=== PATIENT | female | born 1980 | race Caucasian/White ===

== ENCOUNTER 2017-05-22 14:08 | Emergency (ER) | payer SELFPAY ==
[~2017-05-22] VITALS: Ht 157.5 cm; Wt 68.4 kg
[~2017-05-22 14:08] MED LIST: AZIT250T PO
[2017-05-22 14:31] LABS: BASOPHILS # (AUTO) 0.1 X10'3 (0-0.2); BASOPHILS % (AUTO) 1.9 % (0-1); EOSINOPHILS # (AUTO) 0.1 X10'3 (0-0.9); EOSINOPHILS % (AUTO) 1.5 % (0-6); HEMATOCRIT 40.4 % (35.0-45.0); HEMOGLOBIN 14.1 g/dl (12.0-16.0); LYMPHOCYTES # (AUTO) 1.6 X10'3 (1.1-4.8); LYMPHOCYTES % (AUTO) 28.1 % (21-51); MEAN CORPUSCULAR HEMOGLOBIN 37.8 PG (27.0-31.0); MEAN CORPUSCULAR HGB CONC 34.9 % (33.0-36.5); MEAN CORPUSCULAR VOLUME 108.3 FL (78-98); MONOCYTES # (AUTO) 0.9 X10'3 (0-0.9); MONOCYTES % (AUTO) 16.8 % (2-12); NEUTROPHILS # (AUTO) 2.9 X10'3 (1.8-7.7); NEUTROPHILS % (AUTO) 51.7 % (42-75); PLATELET COUNT 307 X10'3 (140-440); RED BLOOD COUNT 3.73 X10'6 (4.20-5.60); RED CELL DISTRIBUTION WIDTH 13.1 % (11.5-14.5); WHITE BLOOD COUNT 5.6 X10'3 (4.5-11.0)
[2017-05-22] MEDS ORDERED: ketorolac trometh. 30mg/ml inj. IM ONE (14:35)
[2017-05-22 14:38] LABS: PROTHROMBIN TIME 9.9 SECONDS (9.0-12.0)
[2017-05-22 14:43] LABS: CLARITY,URINE CLEAR (Clear); COLOR,URINE YELLOW (Yellow); GLUCOSE, URINE NEGATIVE (Neg); KETONES,URINE NEGATIVE (Neg); LEUKOCYTE ESTERASE ,URINE NEGATIVE (Neg); NITRITES, URINE NEGATIVE (Neg); OCCULT BLOOD,URINE LARGE (Neg); PROTEIN,URINE 100 mg/dl (Neg)
[2017-05-22 14:49] LABS: UA COLLECTION TYPE CLN CATCH MIDSTREAM
[2017-05-22 14:50] LABS: BACTERIA,URINE FEW /HPF (Neg); MUCUS STRANDS FEW /LPF (Neg); RBC,URINE 0-2 /HPF (0-2); SQUAMOUS EPITHELIAL CELL,UR MANY /LPF (FEW); WBC,URINE 0-4 /HPF (0-4)
[2017-05-22 14:51] LABS: ALANINE AMINOTRANSFERASE 301 U/L (12-78); ALBUMIN 4.3 G/DL (3.4-5.0); ALBUMIN/GLOBULIN RATIO 1.1 (1.1-1.5); ALKALINE PHOSPHATASE 119 IU/L (46-116); ANION GAP 9 (8-16); ASPARTATE AMINO TRANSFERASE 330 U/L (10-37); BILIRUBIN,TOTAL 0.8 MG/DL (0.1-1.0); BLOOD UREA NITROGEN 6 MG/DL (7-18); BUN/CREATININE RATIO 8.6 (6.6-38.0); CALCIUM 9.3 MG/DL (8.5-10.1); CHLORIDE 104 MMOL/L (99-107); GLUCOSE 95 MG/DL (70-104); POTASSIUM 3.4 MMOL/L (3.5-5.1); SODIUM 141 MMOL/L (135-145); TOTAL CARBON DIOXIDE 27.9 MMOL/L (24-32); TOTAL PROTEIN 8.1 G/DL (6.4-8.2); eGFR > 90 ML/MIN
[2017-05-22 15:26] LABS: URINE HCG NEGATIVE (NEG)
[2017-05-22 16:46] VITALS: BP 155/95
== END 2017-05-22 16:47 | disposition home or self-care (01) ==
LOC: ER 14:09
DX: N83.202 Unspecified ovarian cyst, left side (principal); N93.8 Other specified abnormal uterine and vaginal bleeding; K21.9 Gastro-esophageal reflux disease without esophagitis; E03.9 Hypothyroidism, unspecified; Z98.51 Tubal ligation status; Z88.5 Allergy status to narcotic agent; Z79.899 Other long term (current) drug therapy
CPT/HCPCS: 36415; 76856; 80053; 81001; 81025; 85025; 85610; 96372; 99285; J1885

== ENCOUNTER 2017-08-13 18:44 | Emergency (ER) | payer OTHER ==
[~2017-08-13] VITALS: Ht 157.5 cm; Wt 62.0 kg
[2017-08-13 19:41] LABS: D-DIMER 0.81 MG/L FEU (0-0.50)
[2017-08-13 20:34] VITALS: BP 140/95
== END 2017-08-13 20:35 | disposition home or self-care (01) ==
LOC: ER 18:45
DX: M79.651 Pain in right thigh (principal); I10 Essential (primary) hypertension; K21.9 Gastro-esophageal reflux disease without esophagitis; E03.9 Hypothyroidism, unspecified; F17.200 Nicotine dependence, unspecified, uncomplicated; Z88.5 Allergy status to narcotic agent
CPT/HCPCS: 36415; 85379; 93971; 99285

== ENCOUNTER 2017-12-22 23:44 | Emergency (ER) | payer SELFPAY ==
[~2017-12-22] VITALS: Ht 157.5 cm; Wt 62.0 kg
[2017-12-22 23:48] VITALS: BP 135/91
[2017-12-24] MEDS ORDERED: AZIT500T PO (16:33)
== END 2017-12-23 06:18 | disposition left against medical advice (07) ==
LOC: ER 23:45
DX: R06.00 Dyspnea, unspecified (principal); R05 Cough; R06.02 Shortness of breath; Z53.21 Procedure and treatment not carried out due to patient leaving prior to being seen by health care provider

== ENCOUNTER 2017-12-28 18:51 | Emergency (ER) | payer OTHER ==
[~2017-12-28] VITALS: Ht 162.6 cm; Wt 60.1 kg
[~2017-12-28 18:51] MED LIST changes: +AZIT500T PO
[2017-12-28 18:56] VITALS: BP 142/104
[2017-12-28 20:14] LABS: BASOPHILS # (AUTO) 0.1 X10'3 (0-0.2); HEMOGLOBIN 14.7 g/dl (12.0-16.0); LYMPHOCYTES # (AUTO) 1.8 X10'3 (1.1-4.8); MONOCYTES # (AUTO) 0.6 X10'3 (0-0.9); NEUTROPHILS # (AUTO) 2.3 X10'3 (1.8-7.7); WHITE BLOOD COUNT 4.8 X10'3 (4.5-11.0)
[2017-12-28 20:17] LABS: BASOPHILS % (AUTO) 1.3 % (0-1); EOSINOPHILS # (AUTO) 0.1 X10'3 (0-0.9); EOSINOPHILS % (AUTO) 1.1 % (0-6); HEMATOCRIT 42.4 % (35.0-45.0); LYMPHOCYTES % (AUTO) 37.3 % (21-51); MEAN CORPUSCULAR HGB CONC 34.7 % (33.0-36.5); MEAN CORPUSCULAR VOLUME 112.4 FL (78-98); MEAN PLATELET VOLUME 8.1 FL (7.4-10.4); MONOCYTES % (AUTO) 12.7 % (2-12); NEUTROPHILS % (AUTO) 47.6 % (42-75); PLATELET COUNT 237 X10'3 (140-440); RED BLOOD COUNT 3.77 X10'6 (4.20-5.60)
[2017-12-28 20:23] LABS: ALANINE AMINOTRANSFERASE 129 U/L (12-78); ALKALINE PHOSPHATASE 144 IU/L (46-116); ANION GAP 16 (8-16); ASPARTATE AMINO TRANSFERASE 320 U/L (10-37); BILIRUBIN,TOTAL 0.9 MG/DL (0.1-1.0); BLOOD UREA NITROGEN 5 MG/DL (7-18); BUN/CREATININE RATIO 7.5 (6.6-38.0); CALCIUM 9.3 MG/DL (8.5-10.1); CHLORIDE 97 MMOL/L (99-107); CREATININE 0.67 MG/DL (0.40-0.90); GLUCOSE 128 MG/DL (70-104); POTASSIUM 4.1 MMOL/L (3.5-5.1); SODIUM 136 MMOL/L (135-145); TOTAL CARBON DIOXIDE 22.7 MMOL/L (24-32); TOTAL PROTEIN 8.2 G/DL (6.4-8.2); eGFR > 90 ML/MIN
[2017-12-28 20:52] LABS: PLATELET ESTIMATE NORMAL
== END 2017-12-28 21:04 | disposition home or self-care (01) ==
LOC: ER 18:52
DX: R53.1 Weakness (principal); R11.10 Vomiting, unspecified; H92.02 Otalgia, left ear; I10 Essential (primary) hypertension; K21.9 Gastro-esophageal reflux disease without esophagitis; E03.9 Hypothyroidism, unspecified; F12.90 Cannabis use, unspecified, uncomplicated; F17.200 Nicotine dependence, unspecified, uncomplicated; Z88.5 Allergy status to narcotic agent; Z79.2 Long term (current) use of antibiotics
CPT/HCPCS: 36415; 80053; 85025; 99284

== ENCOUNTER 2018-02-26 16:59 | Emergency (ER) | payer OTHER ==
[~2018-02-26] VITALS: Ht 157.5 cm; Wt 54.0 kg
[~2018-02-26 16:59] MED LIST changes: -AZIT500T PO
[2018-02-26 17:13] VITALS: BP 140/93
[2018-02-27] MEDS ORDERED: PRED20TA PO (12:20)
[2018-02-27] MEDS ORDERED: DOXY100C43 PO (12:20)
[2018-02-27] MEDS ORDERED: ALBU8HFA PO (12:20)
== END 2018-02-26 18:22 | disposition left against medical advice (07) ==
LOC: ER 16:59
DX: M79.10 Myalgia, unspecified site (principal); Z53.21 Procedure and treatment not carried out due to patient leaving prior to being seen by health care provider

== ENCOUNTER 2018-02-27 10:21 | Emergency (ER) | payer OTHER ==
[~2018-02-27] VITALS: Ht 157.5 cm; Wt 54.5 kg
[2018-02-27 11:25] VITALS: BP 138/91
[2018-02-27] MEDS ORDERED: ALBU8HFA PO (12:20)
[2018-02-27] MEDS ORDERED: DOXY100C43 PO (12:20)
[2018-02-27] MEDS ORDERED: PRED20TA PO (12:20)
== END 2018-02-27 12:34 | disposition home or self-care (01) ==
LOC: ER 10:21
DX: J20.9 Acute bronchitis, unspecified (principal); J32.9 Chronic sinusitis, unspecified; F12.90 Cannabis use, unspecified, uncomplicated; B34.9 Viral infection, unspecified; I10 Essential (primary) hypertension; K21.9 Gastro-esophageal reflux disease without esophagitis; Z98.51 Tubal ligation status; Z72.0 Tobacco use; Z98.890 Other specified postprocedural states; Z88.5 Allergy status to narcotic agent; Z79.2 Long term (current) use of antibiotics; Z79.899 Other long term (current) drug therapy
CPT/HCPCS: 99283

== ENCOUNTER 2018-03-09 02:19 | Emergency (ER) | payer SELFPAY ==
[~2018-03-09] VITALS: Ht 157.5 cm; Wt 52.0 kg
[~2018-03-09 02:19] MED LIST changes: +ALBU8HFA PO; +DOXY100C43 PO; +PRED20TA PO
[2018-03-09] MEDS ORDERED: ONDA4TAB9 PO (05:37)
[2018-03-09] MEDS ORDERED: ALBU8HFA PO (05:37)
[2018-03-09] MEDS ORDERED: DOXY100C43 PO (05:37)
[2018-03-09] MEDS ORDERED: PRED20TA PO (05:37)
[2018-03-09 05:52] VITALS: BP 130/82
== END 2018-03-09 05:54 | disposition home or self-care (01) ==
LOC: ER 02:19
DX: J20.9 Acute bronchitis, unspecified (principal); K29.00 Acute gastritis without bleeding; I10 Essential (primary) hypertension; K21.9 Gastro-esophageal reflux disease without esophagitis; E03.9 Hypothyroidism, unspecified; F12.90 Cannabis use, unspecified, uncomplicated; F17.200 Nicotine dependence, unspecified, uncomplicated; Z79.899 Other long term (current) drug therapy; Z98.890 Other specified postprocedural states; Z98.51 Tubal ligation status; Z88.6 Allergy status to analgesic agent; Z72.0 Tobacco use
CPT/HCPCS: 71045; 99283; 99406

== ENCOUNTER 2019-02-18 00:10 | Emergency (ER) | payer SELFPAY ==
[~2019-02-18] VITALS: Ht 158.8 cm; Wt 65.0 kg
[~2019-02-18 00:10] MED LIST changes: -ALBU8HFA PO; -DOXY100C43 PO; -PRED20TA PO
--- NOTE | 2019-02-18 01:00 | NUR ---
note that patient smells of etoh and states that she "did a shot " for pain beffore coming to the er
[2019-02-18 01:03] VITALS: BP 127/85
--- NOTE | 2019-02-18 01:14 | NUR ---
went to check on patient and patient and her boyfriend left without being seen by
--- NOTE | 2019-02-18 01:15 | NUR ---
ASKED DR SANDERS TO LOOK AT LEFT SHOULDER XRAY BECAUSE PATIENT LEFT WITHOUT BEING SEEN. DR SANDERS STATED THAT HE WILL LOOK AT THE SHOULDER XRAY LATER
== END 2019-02-18 00:15 | disposition left against medical advice (07) ==
LOC: ER 00:11
DX: M25.512 Pain in left shoulder (principal); Z53.21 Procedure and treatment not carried out due to patient leaving prior to being seen by health care provider
CPT/HCPCS: 73030

== ENCOUNTER 2021-08-30 13:51 | Emergency (ER) | payer MEDICAID ==
[~2021-08-30] VITALS: Ht 157.5 cm; Wt 61.8 kg
[2021-08-30 14:02] VITALS: BP 141/89
[2021-08-30] MEDS ORDERED: ALBU8.5H17 INH ×3 (15:43→16:24)
[2021-08-30] MEDS ORDERED: GUAI120015 PO ×3 (15:44→16:24)
== END 2021-08-30 18:17 | disposition home or self-care (01) ==
LOC: ER 13:51
DX: J20.9 Acute bronchitis, unspecified (principal); Z20.822 Contact with and (suspected) exposure to COVID-19; R43.8 Other disturbances of smell and taste; R06.02 Shortness of breath; I10 Essential (primary) hypertension; K21.9 Gastro-esophageal reflux disease without esophagitis; E03.9 Hypothyroidism, unspecified; F41.9 Anxiety disorder, unspecified; F32.A Depression, unspecified; F12.90 Cannabis use, unspecified, uncomplicated; Z98.51 Tubal ligation status; Z98.890 Other specified postprocedural states; Z72.89 Other problems related to lifestyle; Z88.5 Allergy status to narcotic agent; Z79.2 Long term (current) use of antibiotics; Z79.899 Other long term (current) drug therapy
CPT/HCPCS: 87502; 87503; 87635; 99283; C9803

== ENCOUNTER 2022-11-09 16:55 | Emergency (ER) | payer MEDICAID ==
[~2022-11-09] VITALS: Ht 158.8 cm; Wt 54.4 kg
[~2022-11-09 16:55] MED LIST changes: +ALBU8.5H17 INH; +GUAI120015 PO
[2022-11-09 17:36] VITALS: BP 125/95; PULSE 109; RESP 18; TEMP 98.6; O2SAT 98
[2022-11-09] MEDS ORDERED: IBUP-1985 PO (18:44)
[2022-11-09] MEDS ORDERED: BENZ1LOZ74 PO (18:44)
[2022-11-09] MEDS ORDERED: ONDA4TAB12 PO (18:44)
== END 2022-11-09 18:56 | disposition home or self-care (01) ==
LOC: ER 16:57
DX: J06.9 Acute upper respiratory infection, unspecified (principal); F10.10 Alcohol abuse, uncomplicated; I10 Essential (primary) hypertension; K21.9 Gastro-esophageal reflux disease without esophagitis; E03.9 Hypothyroidism, unspecified; F12.90 Cannabis use, unspecified, uncomplicated; Z88.5 Allergy status to narcotic agent; Z79.2 Long term (current) use of antibiotics; Z79.899 Other long term (current) drug therapy; Z98.51 Tubal ligation status; Z98.890 Other specified postprocedural states; Y90.9 Presence of alcohol in blood, level not specified
CPT/HCPCS: 99283

== ENCOUNTER 2023-07-19 18:24 | Emergency (ER) | payer MEDICAID ==
[~2023-07-19] VITALS: Ht 157.5 cm; Wt 54.5 kg
[~2023-07-19 18:24] MED LIST changes: +BENZ1LOZ74 PO; +IBUP-1985 PO; +ONDA4TAB12 PO
[2023-07-19 18:51] VITALS: TEMP 98.7
[2023-07-19] MEDS: normal saline 1000ml 1,000 ML IV ONE (20:19)
[2023-07-19 20:28] LABS: BASOPHILS # (AUTO) 0.1 X10'3 (0-0.2); BASOPHILS % (AUTO) 1.2 % (0-1); EOSINOPHILS # (AUTO) 0.2 X10'3 (0-0.9); EOSINOPHILS % (AUTO) 1.8 % (0-6); HEMATOCRIT 38.6 % (35.0-45.0); HEMOGLOBIN 13.3 g/dl (12.0-16.0); LYMPHOCYTES # (AUTO) 2.7 X10'3 (1.1-4.8); LYMPHOCYTES % (AUTO) 30.3 % (21-51); MEAN CORPUSCULAR HGB CONC 34.5 g/dL (33.0-36.5); MEAN CORPUSCULAR VOLUME 101.4 FL (78-98); MEAN PLATELET VOLUME 6.2 FL (7.4-10.4); MONOCYTES # (AUTO) 1.1 X10'3 (0-0.9); MONOCYTES % (AUTO) 12.8 % (2-12); NEUTROPHILS # (AUTO) 4.8 X10'3 (1.8-7.7); NEUTROPHILS % (AUTO) 53.9 % (42-75); PLATELET COUNT 467 X10'3 (140-440); RED BLOOD COUNT 3.81 X10'6 (4.20-5.60); RED CELL DISTRIBUTION WIDTH 12.8 % (11.5-14.5); WHITE BLOOD COUNT 8.9 X10'3 (4.5-11.0)
[2023-07-19] MEDS: LORazepam 2 mg/ml vial IV ONE (20:32)
[2023-07-19 20:35] LABS: ALBUMIN 2.9 G/DL (3.4-5.0); ANION GAP 15 (8-16); BLOOD UREA NITROGEN 8 MG/DL (7-18); BUN/CREATININE RATIO 9.8 (10.0-20.0); CALCIUM 8.2 MG/DL (8.5-10.1); CHLORIDE 99 MMOL/L (99-107); CREATININE 0.82 MG/DL (0.40-0.90); GLUCOSE 92 MG/DL (70-104); POTASSIUM 3.2 MMOL/L (3.5-5.1); SODIUM 140 MMOL/L (135-145); TOTAL CARBON DIOXIDE 26.4 MMOL/L (24-32); eCRCL 69 ML/MIN; eGFR 75 ML/MIN
[2023-07-19] MEDS ORDERED: ONDA4TAB12 PO (21:01)
[2023-07-19] MEDS: potassium Cl 20 mEq SR tablet PO ONE (21:18)
[2023-07-19 21:25] VITALS: BP 135/89; PULSE 91; RESP 16; O2SAT 95
== END 2023-07-19 21:27 | disposition home or self-care (01) ==
LOC: ER 18:24
DX: B34.9 Viral infection, unspecified (principal); Z20.822 Contact with and (suspected) exposure to COVID-19; E87.6 Hypokalemia; E86.0 Dehydration; I10 Essential (primary) hypertension; K21.9 Gastro-esophageal reflux disease without esophagitis; E03.9 Hypothyroidism, unspecified; F12.90 Cannabis use, unspecified, uncomplicated; Z88.5 Allergy status to narcotic agent; Z79.2 Long term (current) use of antibiotics; Z79.899 Other long term (current) drug therapy; Z98.890 Other specified postprocedural states
CPT/HCPCS: 36415; 71045; 80048; 85025; 87502; 87503; 87811; 96361; 96374; 99284; J2060; J7030

== ENCOUNTER 2023-10-30 14:40 | Emergency (ER) | payer MEDICAID ==
[~2023-10-30] VITALS: Ht 157.5 cm; Wt 56.4 kg
[~2023-10-30 14:40] MED LIST changes: +ONDA-243 PO; -ONDA4TAB12 PO
[2023-10-30] MEDS: normal saline 1000ML IV soln IVB ONE (16:25)
[2023-10-30 19:22] VITALS: BP 123/77; PULSE 88; RESP 14; TEMP 98.5; O2SAT 100
== END 2023-10-30 19:23 | disposition home or self-care (01) ==
LOC: ER 14:40
DX: R06.02 Shortness of breath (principal); E86.0 Dehydration; F15.10 Other stimulant abuse, uncomplicated; I10 Essential (primary) hypertension; K21.9 Gastro-esophageal reflux disease without esophagitis; E03.9 Hypothyroidism, unspecified; F17.200 Nicotine dependence, unspecified, uncomplicated; F12.90 Cannabis use, unspecified, uncomplicated; Z88.5 Allergy status to narcotic agent; Z79.1 Long term (current) use of non-steroidal anti-inflammatories (NSAID); Z79.2 Long term (current) use of antibiotics; Z79.899 Other long term (current) drug therapy; Z98.890 Other specified postprocedural states; Z98.51 Tubal ligation status
CPT/HCPCS: 93005; 96360; 99285; J7030

== ENCOUNTER 2023-11-13 03:22 | Emergency (ER) | payer MEDICAID ==
[~2023-11-13] VITALS: Ht 157.5 cm; Wt 54.5 kg
[2023-11-13] MEDS ORDERED: HYDR-3965 PO (03:42)
[2023-11-13] MEDS ORDERED: CLIN-197 PO (03:42)
[2023-11-13] MEDS: HYDROcodone/acetaminophen 5mg/325mg tablet PO ONE (03:47)
[2023-11-13] MEDS: clindamycin 150mg capsule PO ONE (03:47)
[2023-11-13 03:59] VITALS: BP 145/68; PULSE 88; RESP 16; TEMP 97.8; O2SAT 98
== END 2023-11-13 04:01 | disposition home or self-care (01) ==
LOC: ER 03:22
DX: K04.7 Periapical abscess without sinus (principal); I10 Essential (primary) hypertension; K21.9 Gastro-esophageal reflux disease without esophagitis; E03.9 Hypothyroidism, unspecified; F41.9 Anxiety disorder, unspecified; F32.A Depression, unspecified; F12.90 Cannabis use, unspecified, uncomplicated; F15.90 Other stimulant use, unspecified, uncomplicated; Z88.5 Allergy status to narcotic agent; Z79.2 Long term (current) use of antibiotics; Z79.899 Other long term (current) drug therapy; Z79.1 Long term (current) use of non-steroidal anti-inflammatories (NSAID); Z98.890 Other specified postprocedural states; Z98.51 Tubal ligation status
CPT/HCPCS: 99283

== ENCOUNTER 2023-11-23 11:14 | Emergency (ER) | payer MEDICAID ==
[~2023-11-23] VITALS: Ht 157.5 cm; Wt 54.5 kg
[~2023-11-23 11:14] MED LIST changes: +CLIN-197 PO; +HYDR-3965 PO
[2023-11-23 12:50] VITALS: BP 132/86; PULSE 88; RESP 18; TEMP 97.8; O2SAT 99
[2023-11-23 13:34] LABS: BASOPHILS # (AUTO) 0.1 X10'3 (0-0.2); BASOPHILS % (AUTO) 1.1 % (0-1); EOSINOPHILS # (AUTO) 0.1 X10'3 (0-0.9); EOSINOPHILS % (AUTO) 2.1 % (0-6); HEMATOCRIT 38.6 % (35.0-45.0); HEMOGLOBIN 13.3 g/dl (12.0-16.0); LYMPHOCYTES # (AUTO) 2.2 X10'3 (1.1-4.8); LYMPHOCYTES % (AUTO) 44.9 % (21-51); MEAN CORPUSCULAR HEMOGLOBIN 37.4 PG (27.0-31.0); MEAN CORPUSCULAR HGB CONC 34.6 g/dL (33.0-36.5); MEAN CORPUSCULAR VOLUME 108.1 FL (78-98); MEAN PLATELET VOLUME 6.7 FL (7.4-10.4); MONOCYTES # (AUTO) 0.6 X10'3 (0-0.9); MONOCYTES % (AUTO) 13.1 % (2-12); NEUTROPHILS # (AUTO) 1.9 X10'3 (1.8-7.7); NEUTROPHILS % (AUTO) 38.8 % (42-75); PLATELET COUNT 318 X10'3 (140-440); RED BLOOD COUNT 3.57 X10'6 (4.20-5.60); RED CELL DISTRIBUTION WIDTH 13.6 % (11.5-14.5); WHITE BLOOD COUNT 4.9 X10'3 (4.5-11.0)
[2023-11-23 13:47] LABS: ALBUMIN 3.4 G/DL (3.4-5.0); ANION GAP 10 (8-16); BLOOD UREA NITROGEN 4 MG/DL (7-18); BUN/CREATININE RATIO 6.8 (10.0-20.0); CALCIUM 8.9 MG/DL (8.5-10.1); CHLORIDE 101 MMOL/L (99-107); CREATININE 0.59 MG/DL (0.40-0.90); GLUCOSE 95 MG/DL (70-104); SODIUM 138 MMOL/L (135-145); TOTAL CARBON DIOXIDE 27.3 MMOL/L (24-32); eCRCL 95 ML/MIN; eGFR > 90 ML/MIN
[2023-11-23] MEDS: potassium bicarbonate/cit acid 25mEq tablet.effervescent PO STA (14:24)
[2023-11-23] MEDS ORDERED: POTA20PA40 PO (15:36)
== END 2023-11-23 16:02 | disposition home or self-care (01) ==
LOC: ER 11:14
DX: E87.6 Hypokalemia (principal); Z20.822 Contact with and (suspected) exposure to COVID-19; R53.1 Weakness; I10 Essential (primary) hypertension; K21.9 Gastro-esophageal reflux disease without esophagitis; E03.9 Hypothyroidism, unspecified; F41.9 Anxiety disorder, unspecified; F32.A Depression, unspecified; F12.90 Cannabis use, unspecified, uncomplicated; F15.90 Other stimulant use, unspecified, uncomplicated; Z88.5 Allergy status to narcotic agent; Z79.2 Long term (current) use of antibiotics; Z79.1 Long term (current) use of non-steroidal anti-inflammatories (NSAID); Z79.899 Other long term (current) drug therapy; Z98.890 Other specified postprocedural states; Z98.51 Tubal ligation status
CPT/HCPCS: 36415; 71045; 80048; 85025; 87811; 99284

== ENCOUNTER 2023-12-02 15:57 | Emergency (ER) | payer MEDICAID ==
[~2023-12-02] VITALS: Ht 157.5 cm; Wt 60.0 kg
[~2023-12-02 15:57] MED LIST changes: -CLIN-197 PO; +POTA20PA40 PO
[2023-12-02 17:36] LABS: BASOPHILS # (AUTO) 0.1 X10'3 (0-0.2); BASOPHILS % (AUTO) 1.5 % (0-1); EOSINOPHILS # (AUTO) 0.1 X10'3 (0-0.9); EOSINOPHILS % (AUTO) 2.4 % (0-6); HEMATOCRIT 38.1 % (35.0-45.0); HEMOGLOBIN 12.9 g/dl (12.0-16.0); LYMPHOCYTES % (AUTO) 39.6 % (21-51); MEAN CORPUSCULAR HEMOGLOBIN 36.9 PG (27.0-31.0); MEAN CORPUSCULAR HGB CONC 33.9 g/dL (33.0-36.5); MEAN CORPUSCULAR VOLUME 108.9 FL (78-98); MEAN PLATELET VOLUME 6.6 FL (7.4-10.4); MONOCYTES # (AUTO) 0.7 X10'3 (0-0.9); MONOCYTES % (AUTO) 14.4 % (2-12); NEUTROPHILS # (AUTO) 2.2 X10'3 (1.8-7.7); NEUTROPHILS % (AUTO) 42.1 % (42-75); PLATELET COUNT 312 X10'3 (140-440); RED CELL DISTRIBUTION WIDTH 13.6 % (11.5-14.5); WHITE BLOOD COUNT 5.1 X10'3 (4.5-11.0)
[2023-12-02] MEDS: ondansetron/PF 4mg/2ml inj IV ONE (17:47)
[2023-12-02] MEDS: normal saline 1000ml 1,000 ML IV ONE (17:48)
[2023-12-02] MEDS: LORazepam 2 mg/ml vial IV ONE ×2 (17:56→18:05)
[2023-12-02 18:01] LABS: ALANINE AMINOTRANSFERASE 69 U/L (12-78); ALBUMIN 3.9 G/DL (3.4-5.0); ALBUMIN/GLOBULIN RATIO 0.8 (1.1-1.5); ALKALINE PHOSPHATASE 123 IU/L (46-116); ANION GAP 12 (8-16); ASPARTATE AMINO TRANSFERASE 113 U/L (10-37); BILIRUBIN,TOTAL 0.8 MG/DL (0.1-1.0); BLOOD UREA NITROGEN 11 MG/DL (7-18); BUN/CREATININE RATIO 13.9 (10.0-20.0); CALCIUM 9.2 MG/DL (8.5-10.1); CHLORIDE 101 MMOL/L (99-107); CREATININE 0.79 MG/DL (0.40-0.90); ETHANOL 110 MG/DL (<10); GLUCOSE 92 MG/DL (70-104); MAGNESIUM 1.6 MG/DL (1.5-2.4); POTASSIUM 3.6 MMOL/L (3.5-5.1); SALICYLATE 6.4 MG/DL (4.0-20.0); SODIUM 138 MMOL/L (135-145); TOTAL CARBON DIOXIDE 25.1 MMOL/L (24-32); TOTAL PROTEIN 8.6 G/DL (6.4-8.2); eCRCL 71 ML/MIN; eGFR 79 ML/MIN
[2023-12-02 18:03] LABS: BETA HCG,QUANTITATIVE < 1.0 mIU/ml
[2023-12-02 18:04] LABS: ACETAMINOPHEN < 2.0 UG/ML (10-30)
[2023-12-02] MEDS: thiamine 100mg/ml 2ml inj. IV ONE (20:17)
[2023-12-02 21:27] VITALS: PULSE 88
[2023-12-02] MEDS ORDERED: CHLO25CA10 PO (22:57)
[2023-12-02 23:24] VITALS: BP 159/69; RESP 16; TEMP 97.8; O2SAT 100
== END 2023-12-02 23:38 | disposition home or self-care (01) ==
LOC: ER 15:57 → EEVIPCON 15:57 → ER 23:38
DX: F10.129 Alcohol abuse with intoxication, unspecified (principal); F15.10 Other stimulant abuse, uncomplicated; I10 Essential (primary) hypertension; K21.9 Gastro-esophageal reflux disease without esophagitis; E03.9 Hypothyroidism, unspecified; F41.9 Anxiety disorder, unspecified; F32.A Depression, unspecified; F12.90 Cannabis use, unspecified, uncomplicated; Z88.5 Allergy status to narcotic agent; Z79.2 Long term (current) use of antibiotics; Z79.1 Long term (current) use of non-steroidal anti-inflammatories (NSAID); Z79.899 Other long term (current) drug therapy; Z98.890 Other specified postprocedural states; Z98.51 Tubal ligation status; Y90.9 Presence of alcohol in blood, level not specified
CPT/HCPCS: 36415; 80053; 80320; 80329; 83735; 84702; 85025; 96361; 96374; 96375; 99285; J2060; J2405; J3411; J7030

== ENCOUNTER 2024-07-03 21:07 | Emergency (ER) | payer MEDICAID ==
[~2024-07-03] VITALS: Ht 160 cm; Wt 59.1 kg
[~2024-07-03 21:07] MED LIST changes: +CHLO25CA10 PO; -HYDR-3965 PO
[2024-07-03 21:10] VITALS: TEMP 98.2
[2024-07-03 21:45] LABS: BASOPHILS % (AUTO) 0.9 % (0-1); EOSINOPHILS % (AUTO) 0.4 % (0-6); HEMATOCRIT 40.6 % (35.0-45.0); HEMOGLOBIN 13.8 g/dl (12.0-16.0); LYMPHOCYTES # (AUTO) 0.9 X10'3 (1.1-4.8); LYMPHOCYTES % (AUTO) 17.5 % (21-51); MEAN CORPUSCULAR HEMOGLOBIN 36.7 PG (27.0-31.0); MEAN CORPUSCULAR HGB CONC 34.1 g/dL (33.0-36.5); MEAN CORPUSCULAR VOLUME 107.7 FL (78-98); MONOCYTES # (AUTO) 0.6 X10'3 (0-0.9); NEUTROPHILS # (AUTO) 3.3 X10'3 (1.8-7.7); NEUTROPHILS % (AUTO) 68.2 % (42-75); PLATELET COUNT 287 X10'3 (140-440); RED BLOOD COUNT 3.77 X10'6 (4.20-5.60); WHITE BLOOD COUNT 4.9 X10'3 (4.5-11.0)
[2024-07-03 21:48] LABS: URINE HCG NEGATIVE (NEG)
[2024-07-03 21:59] LABS: ALANINE AMINOTRANSFERASE 167 U/L (12-78); ALBUMIN 3.7 G/DL (3.4-5.0); ALBUMIN/GLOBULIN RATIO 0.8 (1.1-1.5); ALKALINE PHOSPHATASE 169 IU/L (46-116); ANION GAP 13 (8-16); ASPARTATE AMINO TRANSFERASE 352 U/L (10-37); BILIRUBIN,TOTAL 0.8 MG/DL (0.1-1.0); BLOOD UREA NITROGEN 10 MG/DL (7-18); BUN/CREATININE RATIO 9.7 (10.0-20.0); CALCIUM 8.9 MG/DL (8.5-10.1); CHLORIDE 99 MMOL/L (99-107); CREATININE 1.03 MG/DL (0.40-0.90); GLUCOSE 112 MG/DL (70-104); POTASSIUM 3.2 MMOL/L (3.5-5.1); SODIUM 140 MMOL/L (135-145); TOTAL CARBON DIOXIDE 28.1 MMOL/L (24-32); TOTAL PROTEIN 8.5 G/DL (6.4-8.2); eCRCL 56 ML/MIN; eGFR 58 ML/MIN
[2024-07-03 22:00] LABS: LIPASE 90 U/L (16-77)
[2024-07-03 22:06] LABS: ETHANOL 342 MG/DL (<10); URINE AMPHETAMINE SCREEN POSITIVE (Neg); URINE BARBITUATE SCREEN NEGATIVE (Neg); URINE BENZODIAZEPINES SCREEN NEGATIVE (Neg); URINE CANNABINOID SCREEN NEGATIVE (Neg); URINE COCAINE SCREEN NEGATIVE (Neg); URINE METHADONE SCREEN NEGATIVE (Neg); URINE OPIATE SCREEN NEGATIVE (Neg); URINE PHENCYCLIDINE SCREEN NEGATIVE (Neg)
[2024-07-03 22:22] LABS: BILIRUBIN,URINE SMALL (Neg); CLARITY,URINE TURBID (Clear); COLOR,URINE RED (Yellow); GLUCOSE, URINE NEGATIVE (Neg); KETONES,URINE TRACE mg/dl (Neg); LEUKOCYTE ESTERASE ,URINE NEGATIVE (Neg); OCCULT BLOOD,URINE LARGE (Neg); PROTEIN,URINE 100 mg/dl (Neg)
[2024-07-03 22:25] LABS: UA COLLECTION TYPE NON-SPECIFIED
[2024-07-03 22:26] LABS: NITRITES, URINE POSITIVE (Neg)
[2024-07-03 22:27] LABS: BACTERIA,URINE 2+ /HPF (Neg); RBC,URINE TNTC /HPF (0-2); SQUAMOUS EPITHELIAL CELL,UR FEW /LPF (FEW)
[2024-07-03] MEDS: diphenhydrAMINE 50 mg/ml inj IV ONE (23:14)
[2024-07-03] MEDS: thiamine 100mg/ml 2ml inj. IV ONE (23:14)
[2024-07-03] MEDS: normal saline 1000ml 1,000 ML IV ONE (23:14)
[2024-07-04] MEDS: potassium Cl 20 mEq SR tablet PO STA ×2 (02:22→02:27)
[2024-07-04 02:49] VITALS: BP 130/73; PULSE 98; RESP 14; O2SAT 97
== END 2024-07-04 02:50 | disposition home or self-care (01) ==
LOC: ER 21:08
DX: F10.129 Alcohol abuse with intoxication, unspecified (principal); F15.10 Other stimulant abuse, uncomplicated; E03.9 Hypothyroidism, unspecified; I10 Essential (primary) hypertension; F12.90 Cannabis use, unspecified, uncomplicated; Z88.5 Allergy status to narcotic agent; Z98.51 Tubal ligation status
CPT/HCPCS: 36415; 80053; 80305; 80320; 81001; 81025; 83690; 85025; 87088; 96361; 96374; 96375; 99285; J1200; J3411; J7030; 87077; 87186